=== PATIENT | female | born 1995 | race Caucasian/White ===

== ENCOUNTER 2016-05-24 14:34 | Inpatient (IN) | payer OTHER ==
[~2016-05-24] VITALS: Ht 160 cm; Wt 71.0 kg
[~2016-05-24 14:34] MED LIST: MOTRIN800 MG PO; ZOFRAN ODT4 MG PO; ZOLOFT50 MG PO
[2016-05-24 16:00] LABS: HEMATOCRIT 46.3 % (36.0-46.0); MCHC 33.5 G/DL (30.0-36.0); MCV 92.6 FL (83-99); MEAN PLAT.VOLUME 11.3 uM^3 (9.5-12.4); PLATELET COUNT 284 K/uL (156-360); RBC DIS.WIDTH-CV 12.3 % (11.8-14.6); RBC DIS.WIDTH-SD 42.1 % (39-53); WHITE BLOOD COUNT 11.9 K/uL (4.1-10.2)
[2016-05-24 16:10] LABS: CHLORIDE 105 mEq/L (99-109); POTASSIUM 4.2 mEq/L (3.7-5.4); SODIUM 139 mEq/L (136-147)
[2016-05-24 16:12] LABS: GLUCOSE 79 mg/dL (70-99)
[2016-05-24 16:14] LABS: ANION GAP 12 MEQ/L (2-14)
[2016-05-24 16:15] LABS: SERUM ETHYL ALCOHOL < 10 mg/dL
[2016-05-24 16:16] LABS: GFR ESTIMATE (CALCULATED) > 59 mL/min/
[2016-05-24 16:17] LABS: UREA NITROGEN (BUN) 15 mg/dL (9-23)
[2016-05-24 16:24] LABS: QUANTITATIVE HCG < 4.0 MIU/ML
[2016-05-24 16:46] LABS: AMPHETAMINE NEGATIVE (500 ng/mL); BARBITURATES NEGATIVE (200 ng/mL); BENZODIAZEPINES NEGATIVE (150 ng/mL); COCAINE NEGATIVE (150 ng/mL); INTERNAL CONTROLS VALID? YES; METHADONE NEGATIVE (200 ng/mL); METHAMPHETAMINE NEGATIVE (500 ng/mL); OPIATES (MORPHINE) NEGATIVE (100 ng/mL); OXYCODONE NEGATIVE (100 ng/mL); PHENCYCLIDINE NEGATIVE (25 ng/mL); PROPOXYPHENE NEGATIVE (300 ng/mL); THC CANNABINOIDS PRESUMPTIVE POSITIVE (50 ng/mL); TRICYCLIC ANTIDEPRESSANTS NEGATIVE (300 ng/mL)
[2016-05-24 16:47] LABS: ADD MEDTOX COMMENT Y
[2016-05-24 20:23] VITALS: BP 132/69
[2016-05-25 08:20] VITALS: BP 128/62
[2016-05-25 11:33] VITALS: BP 127/61
[2016-05-25 12:56] LABS: ALKALINE PHOSPHATASE 46 IU/L (3-129); DIRECT BILIRUBIN 0.4 mg/dL (0.0-0.3); TOTAL BILIRUBIN 2.3 MG/DL (0.0-1.0)
[2016-05-25 15:46] VITALS: BP 134/73
[2016-05-26 07:51] VITALS: BP 118/62
[2016-05-26] MEDS ORDERED: NALTREXONE HCL50 MG PO (10:16)
== END 2016-05-26 11:17 | disposition home or self-care (01) | DRG 885 ==
LOC: EME 14:34 → 1WEST 18:53 → EDOF 18:53 → 1WEST 18:53
PROVIDERS: Emergency Medicine; Psychiatry & Neurology Psychiatry
PROC: HZ2ZZZZ Detoxification Services for Substance Abuse Treatment (ICD-10-PCS; principal; 2016-05-24)
DX: F33.9 Major depressive disorder, recurrent, unspecified (principal); F10.29 Alcohol dependence with unspecified alcohol-induced disorder; F12.99 Cannabis use, unspecified with unspecified cannabis-induced disorder
CPT/HCPCS: 80048; 80076; 83735; 84702; 84999; 85027; 90839; 99281; 99284; G0480

== ENCOUNTER 2016-12-30 02:03 | Emergency (ER) | payer OTHER ==
[~2016-12-30] VITALS: Ht 160 cm; Wt 83.1 kg
[~2016-12-30 02:03] MED LIST changes: +NALTREXONE HCL50 MG PO
[2016-12-30] MEDS ORDERED: PERCOCET 5/31 TABLET PO (03:18)
[2016-12-30 03:51] VITALS: BP 110/72
== END 2016-12-30 03:53 | disposition home or self-care (01) ==
LOC: EME 02:03
PROC: 2W3RX1Z Immobilization of Left Lower Leg using Splint (ICD-10-PCS; principal; 2016-12-30)
DX: S92.352A Displaced fracture of fifth metatarsal bone, left foot, initial encounter for closed fracture (principal); X50.1XXA Overexertion from prolonged static or awkward postures, initial encounter; F17.200 Nicotine dependence, unspecified, uncomplicated
CPT/HCPCS: 73630; 99281; 99283